=== PATIENT | male | born 2000 | race Caucasian/White ===

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

== ENCOUNTER 2021-01-24 14:13 | Emergency (ER) | payer OTHER, SELFPAY ==
[2021-01-24 14:27] VITALS: BP 124/67; PULSE 108; RESP 16; TEMP 38.1; O2SAT 100
--- NOTE | 2021-01-24 14:41 | ED.ABDPAIN ---
HPI - Abdominal Pain General Chief Complaint: Urogenital-Male Stated Complaint: headache,back pain,fever Time Seen by Provider: 01/24/21 14:30 Source: patient, family and RN notes reviewed Mode of arrival: ambulatory Limitations: no limitations History of Present Illness HPI narrative: Roberth is a 20-year-old male who [facility] complaining of lower back pain, fever, and headache. Mother states the fever was 100.6 at home. Patient denies any urinary symptoms. Patient states he has had a decreased appetite. Patient states she was fine yesterday all of the symptoms started around 2 AM. MD elicited complaint: abdominal pain Related Data Home Medications Medication Instructions Recorded Confirmed dexmethylphenidate 25 mg PO DAILY 02/14/19 09/25/20 melatonin 5 mg PO HS PRN 02/14/19 09/25/20 dexmethylphenidate 10 mg PO DAILY 09/25/20 09/25/20 lisinopril 5 mg PO DAILY 09/25/20 09/25/20 fluoxetine 10 mg DAILY 01/24/21 01/24/21 Allergies Allergy/AdvReac Type Severity Reaction Status Date / Time No Known Allergies Allergy Mild Verified 01/24/21 14:41 Review of Systems Review of Systems: CONSTITUTIONAL: Denies body aches, + fever,denies chills, or sweats. EYES: Denies visual changes, redness, or discharge. ENT: Denies rhinorrhea, congestion, sore throat, or otalgia. CARDIOVASCULAR: Denies chest pain, palpitations, or edema. RESPIRATORY: Denies cough or dyspnea. GASTROINTESTINAL: + abdominal pain,denies nausea, vomiting, or diarrhea. GENITOURINARY: Denies dysuria or hematuria. SKIN: Denies rash, itching, or wounds. MUSCULOSKELETAL: + back pain, denies joint pain, or myalgia. NEUROLOGIC: + headache,deneis numbness, tingling, or weakness. PSYCH: Denies depression or anxiety. All systems reviewed & are unremarkable except as noted in HPI and below PMFSH Social History Social History Gender identity (if verbalized by the patient): Male Comments At time of signature, I have reviewed and agree with nursing past medical, surgical, social and family history unless otherwise noted. Please see nursing chart for further information. There is no relevant family history pertinent to the presenting complaint Exam Narrative: GENERAL: Well-appearing, well-nourished, and in no acute distress. HEAD: Normocephalic, atraumatic. EYES: EOMI. No redness or drainage. Conjunctivae normal. ENT: Mucous membranes pink and moist. Nares clear. No rhinorrhea. TMs normal bilaterally. Throat normal. Uvula midline. NECK: Normal AROM. Supple. No lymphadenopathy. CHEST: No respiratory distress. Clear to auscultation. ABDOMEN: Soft, nontender, nondistended, normal active bowel sounds.negative for rebound tenderness,iliopsas and obturator test negative for RLQ pain , negative [place] MUSCULOSKELETAL: No bony tenderness. EXTREMITIES: Normal range of motion. No edema. Straight leg negative for sciatica. Denies any pain with palpation SKIN: Warm, dry, no rash. Capillary refill normal. Normal skin turgor. NEURO: No focal deficits. Alert and oriented x3. Gait steady. PSYCH: Normal affect. No signs of depression or anxiety. Course Vital Signs Vital signs: Vital Signs Temperature 38.1 C H 01/24/21 14:27 Pulse Rate 108 H 01/24/21 14:27 Respiratory Rate 16 01/24/21 14:27 Blood Pressure 124/67 01/24/21 14:27 Pulse Oximetry 100 01/24/21 14:27 Temperature 38.1 C H 01/24/21 14:27 Pulse Rate 108 H 01/24/21 14:27 Respiratory Rate 16 01/24/21 14:27 Blood Pressure 124/67 01/24/21 14:27 Pulse Oximetry 100 01/24/21 14:27 Reviewed MDM - Abdominal Pain MDM Narrative Medical decision making narrative: Patient's urinalysis is negative. Patient's rapid strep is negative. Patient's influenza a and B are negative. Patient's COVID-19 test is negative. Patient will be instructed that he should follow-up for a Covid PCR if he still symptomatic i
== END 2021-01-24 15:22 | disposition home or self-care (01) ==
PROVIDERS: Emergency Provider Nurse Practitioner Family; PCP Nurse Practitioner Family
DX: R50.9 Fever, unspecified (principal); Z20.822 Contact with and (suspected) exposure to COVID-19
CPT/HCPCS: 81003; 87081; 87426; 87804; 87880; 99213; C9803; G0463

== ENCOUNTER 2021-01-24 18:54 | Emergency (ER) | payer OTHER, SELFPAY ==
--- NOTE | ~2021-01-24 | XR_ITS ---
EXAMINATION: XR chest 1V EXAM DATE: 01/24/2021 20:23 INDICATION: Fever today. TECHNIQUE: Portable AP frontal chest x-ray was obtained. Comparison is made to prior examination from 04/01/2018. FINDINGS: The lungs are clear. There are no pleural effusions. Cardiac silhouette is prominent but magnified on this AP technique. There is no pneumothorax suspected. The bones and soft tissues are unremarkable. IMPRESSION: No acute cardiopulmonary findings. Reviewed, dictated and finalized at location A. NESS INFORMATION ANALYST
--- NOTE | ~2021-01-24 | CT_ITS ---
EXAMINATION: CT abdomen pelvis wo con EXAM DATE: 01/24/2021 20:20 INDICATION: Low back, flank pain. TECHNIQUE: Spiral CT of the abdomen and pelvis was performed without contrast. Axial, coronal and sag ittal images were reviewed. The dose-length product (DLP) for this examination was 328.72 mGy-cm. T he exposure was tailored according to patient size (auto mA exposure control), and iterative reconstr uction (ASIR) was used as additional dose reduction technique. There is no prior study for compariso n. FINDINGS: There is no nephrolithiasis or hydronephrosis. Subcentimeter left renal hemorrhagic cyst in the superior pole. The prostate is unremarkable. The bladder is unremarkable. The liver, spleen, a drenal glands and pancreas are unremarkable. Gallbladder is unremarkable. No biliary obstruction. There is no retroperitoneal or pelvic lymphadenopathy. The appendix is normal. The stomach and small bowel are unremarkable. There is expected amount of c olonic stool. No free intraperitoneal gas. The heart is normal in size. There are no pericardial or pleural effusions. The lung bases are unremarkable. There are no osteoblastic or osteolytic les ions identified. IMPRESSION: 1. No nephrolithiasis, hydronephrosis or acute intra-abdominal findings. Reviewed, dictated and finalized at location A. 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
[2021-01-24 19:04] VITALS: BP 131/70; PULSE 111; RESP 16; TEMP 36.8; O2SAT 98
[2021-01-24 19:46] VITALS: BP 131/70; PULSE 111; RESP 20; TEMP 36.4; O2SAT 99
--- NOTE | 2021-01-24 19:56 | ED.GENADULT ---
HPI - General Adult General Chief complaint: Headache Stated complaint: FEVER/BACK PAIN/GARRIDO Time Seen by Provider: 01/24/21 19:46 History of Present Illness HPI narrative: Patient is a 20-year-old gentleman with history of asthma and ADHD presents to emergency department with chief complaint fever and back pain. Patient reports that he started having pain in his low back reports that he has had has had body aches and has had a fever up to 103 at home. Patient was seen at urgent care had a rapid Covid rapid strep and a rapid flu these were negative like this already. Patient reports the pain is not improved by anything or is worsened by anything. Patient states that distress has had no nausea no vomiting no dysuria. Patient denies diarrhea. Related Data Home Medications Medication Instructions Recorded Confirmed dexmethylphenidate 25 mg PO DAILY 02/14/19 01/24/21 melatonin 5 mg PO HS PRN 02/14/19 01/24/21 dexmethylphenidate 10 mg PO DAILY 09/25/20 01/24/21 lisinopril 5 mg PO DAILY 09/25/20 01/24/21 fluoxetine 10 mg DAILY 01/24/21 01/24/21 Allergies Allergy/AdvReac Type Severity Reaction Status Date / Time No Known Allergies Allergy Mild Verified 01/24/21 14:41 Review of Systems Review of Systems: A 10 system review of systems was completed on the patient and is negative except for what is stated in the HPI. Nursing and ancillary documentation was reviewed. [facility] Social History Social History Gender identity (if verbalized by the patient): Male Exam Narrative: GENERAL: Well-appearing, well-nourished, and in no acute distress. HEAD: Normocephalic, atraumatic. EYES: PERRLA and EOMI. ENT: Nares clear, no rhinorrhea or epistaxis. Mucous membranes moist. NECK: Supple. CHEST: Clear to auscultation. No respiratory distress. HEART: Regular rate and rhythm. No murmur heard. Normal peripheral pulses. ABDOMEN: Soft, nontender, nondistended, normal active bowel sounds. EXTREMITIES: Normal range of motion. No edema. SKIN: Warm, dry, no rash. NEURO: No focal deficits. Alert and oriented x3. PSYCH: Normal mood and affect. Course Vital Signs Vital signs: Vital Signs Temperature 36.8 C 01/24/21 19:04 Pulse Rate 111 H 01/24/21 19:04 Respiratory Rate 16 01/24/21 19:04 Blood Pressure 131/70 01/24/21 19:04 Pulse Oximetry 98 01/24/21 19:04 Temperature 36.4 C 01/24/21 19:46 Pulse Rate 111 H 01/24/21 19:46 Respiratory Rate 20 01/24/21 19:46 Blood Pressure 131/70 01/24/21 19:46 Pulse Oximetry 99 01/24/21 19:46 Medical Decision Making Vital Signs Vital Signs: Vital Signs Temperature 36.8 C 01/24/21 19:04 Pulse Rate 111 H 01/24/21 19:04 Respiratory Rate 16 01/24/21 19:04 Blood Pressure 131/70 01/24/21 19:04 Pulse Oximetry 98 01/24/21 19:04 Temperature 36.4 C 01/24/21 19:46 Pulse Rate 111 H 01/24/21 19:46 Respiratory Rate 20 01/24/21 19:46 Blood Pressure 131/70 01/24/21 19:46 Pulse Oximetry 99 01/24/21 19:46 Lab Data Result diagrams: 01/24/21 20:46 01/24/21 20:46 Labs: Lab Results 01/24/21 01/24/21 01/24/21 Range/Units 20:46 20:46 20:46 WBC 5.4 (4.5-10.0) K/mm3 RBC 5.07 (4.6-6.20) M/mm3 Hgb 13.8 L (14.0-18.0) g/dL Hct 42.0 (42.0-52.0) % MCV 82.8 (80-100) fl MCH 27.2 (26-34) pg MCHC 32.9 (32-36) g/dl RDW 12.6 (11.5-14.5) % Plt Count 274 (150-375) k/mm3 MPV 9.0 (7.4-10.4) fl Immature Gran % (Auto) 0.2 (0-0.5) % Neut % (Auto) 75.7 H (45.5-73.1) % Lymph % (Auto) 12.5 L (18.3-44.2) % [place] % (Auto) 11.0 H (2.6-8.5) % Eos % (Auto) 0.2 (0-4.4) % Baso % (Auto) 0.4 (0.2-1.2) % Lymph # (Auto) 0.68 L (0.9-3.2) K/mm3 [place] # (Auto) 0.6 (0.1-0.6) K/mm3 Eos # (Auto) 0.0 (0-0.3) K/mm3 Baso # (Auto) 0.0 (0.0-0.1) K/mm3 Abs Immat Gran (auto) 0.01 (0.00-0
[2021-01-24] MEDS: SODIUM CHLORIDE 0.9% IV 1,000 ML 999 ML IV CONT (20:47)
[2021-01-24] MEDS: KETOROLAC 30 MG/ML VIAL (*BKC) IV PUSH (20:48)
[2021-01-24 20:52] LABS: Basophils Percent Auto 0.4 % (0.2-1.2); Eosinophils Percent Auto 0.2 % (0-4.4); Hemoglobin 13.8 g/dL (14.0-18.0); Immature Granulocyte Absolute 0.01 K/mm3 (0.00-0.031); Immature Granulocyte Percent A 0.2 % (0-0.5); Lymphocytes Absolute Auto 0.68 K/mm3 (0.9-3.2); Lymphocytes Percent Auto 12.5 % (18.3-44.2); Mean Corpuscular HGB Conc 32.9 g/dl (32-36); Mean Corpuscular Hemoglobin 27.2 pg (26-34); Mean Corpuscular Volume 82.8 fl (80-100); Monocytes Absolute Auto 0.6 K/mm3 (0.1-0.6); Neutrophils Absolute Auto 4.1 K/mm3 (1.3-6.7); Neutrophils Percent Auto 75.7 % (45.5-73.1); Platelet Count Result 274 k/mm3 (150-375); Red Blood Count 5.07 M/mm3 (4.6-6.20); Red Cell Distribution Width 12.6 % (11.5-14.5); White Blood Count 5.4 K/mm3 (4.5-10.0)
[2021-01-24 21:01] LABS: Lactic Acid Reflex 0.6 mmol/L (0.7-2.1)
[2021-01-24 21:02] LABS: Alanine Aminotransferase 29 U/L (4-50); Albumin Level 4.9 g/dL (3.7-5.6); Alkaline Phosphatase 83 U/L (58-237); Anion Gap 12 mmol/L (8-16); Aspartate Amino Transferase 24 U/L (17-59); Blood Urea Nitrogen 13 mg/dL (8-21); Calcium 9.5 mg/dL (8.9-10.7); Carbon Dioxide 25 mmol/L (22-30); Chloride 102 mmol/L (98-107); Estimated CRCL calculation 123 ml/min; Estimated Glomerular Filt Rate > 60; Glucose 100 mg/dL (65-110); Lipase 32 U/L (23-300); Potassium 3.9 mmol/L (3.4-5.0); Sodium 139 mmol/L (134-143)
[2021-01-24 22:05] LABS: Add Urine Microscopic? YES; Appearance Urine Clear (Clear); Bilirubin Urine Negative (Negative); Blood Urine Negative (Negative); Color Urine Yellow (Yellow); Glucose Urine UA Negative (Negative); Ketones Urine Trace mg/dL (Negative); Leukocyte Esterase Ur Negative LEU/UL (Negative); Mucus Urine Heavy /lpf; Nitrate Urine Negative (Negative); Protein Urine 1+ mg/dL (Negative); Squamous Epithelial Cell Urine Rare /hpf (Few); WBC Urine 0-3 /hpf
[2021-01-24 22:07] LABS: Specific Grav Ur 1.034 (1.001-1.035)
[2021-01-25 14:20] LABS: SARS-CoV-2 RNA PCR Positive
== END 2021-01-24 22:35 | disposition home or self-care (01) ==
PROVIDERS: Emergency Provider Emergency Medicine; PCP Nurse Practitioner Family
DX: U07.1 COVID-19 (principal); J45.909 Unspecified asthma, uncomplicated; F90.9 Attention-deficit hyperactivity disorder, unspecified type
CPT/HCPCS: 36415; 71045; 74176; 80053; 81001; 81003; 83605; 83690; 85025; 87081; 87426; 87804; 87880; 96361; 96374; 99213; 99284; C9803; G0463; J1885; J7030; U0003; U0005

== ENCOUNTER 2021-03-10 17:20 | Emergency (ER) | payer OTHER, SELFPAY ==
[2021-03-10 17:29] VITALS: BP 134/61; PULSE 86; RESP 18; TEMP 36.4; O2SAT 98
--- NOTE | 2021-03-10 17:31 | ED.EAR ---
HPI - Ear Problem General Chief complaint: Ear Stated complaint: foreign object lodged in rt ear Time Seen by Provider: 03/10/21 17:31 Source: patient, RN notes reviewed and old records reviewed Mode of arrival: ambulatory Limitations: no limitations History of Present Illness HPI Narrative: 20-year-old male who presents to [facility] with complaints of having foreign body in right ear which happened about 15 minutes ago. States it is off of his earbuds and has lodged into hs right ear. Patient denies any pain to his right ear but reports that he is unable to hear from his right ear. Patient reports that this has happened once before but he is unsure why it happened. MD Complaint: foreign body Location: right ear Related Data Home Medications Medication Instructions Recorded Confirmed dexmethylphenidate 25 mg PO DAILY 02/14/19 03/10/21 melatonin 5 mg PO HS PRN 02/14/19 03/10/21 lisinopril 5 mg PO DAILY 09/25/20 03/10/21 fluoxetine 10 mg DAILY 01/24/21 03/10/21 Allergies Allergy/AdvReac Type Severity Reaction Status Date / Time No Known Allergies Allergy Mild Verified 03/10/21 17:26 Review of Systems Review of Systems: CONSTITUTIONAL: Denies fever, chills, or sweats. EYES: Denies visual changes, redness, or discharge. ENT: Denies rhinorrhea, congestion, sore throat, or otalgia. Decreased hearing with foreign body in right ear CARDIOVASCULAR: Denies chest pain, palpitations, or edema. RESPIRATORY: Denies cough or dyspnea. GASTROINTESTINAL: Denies abdominal pain, nausea, vomiting, or diarrhea. GENITOURINARY: Denies dysuria or hematuria. SKIN: Denies rash or itching. MUSCULOSKELETAL: Denies back pain, joint pain, or myalgia. NEUROLOGIC: Denies headache, numbness, or weakness. PSYCHIATRIC: positive history of anxiety or depression. All systems reviewed & are unremarkable except as noted in HPI and below PMFSH Past Medical History Medical History (Updated 03/10/21 @ 19:59 by Nat Estrada NP) ADHD (attention deficit hyperactivity disorder) Anxiety and depression Aspergers' syndrome Ear infection Hypertension Surgical History Surgical History (Updated 03/10/21 @ 19:56 by Nat Estrada NP) History of placement of ear tubes Hx of eye surgery for cross eyes Family History Family History (Updated 03/10/21 @ 19:57 by Nat Estrada NP) Grandparent Diabetes mellitus Hypertension Heart disease Social History Social History (Updated 03/10/21 @ 19:57 by Nat Estrada NP) Social History: exposure to second hand tobacco Smoking status: Never smoker Alcohol intake: never Substance use: never Living arrangements: with family Gender identity (if verbalized by the patient): Male Comments At time of signature, agree with nursing past medical, surgical, social and family history. There is no relevant family history pertinent to the presenting complaint Exam Narrative: GENERAL: Well-appearing, well-nourished, and in no acute distress. HEAD: Normocephalic, atraumatic. EYES: PERRLA and EOMI. ENT: Nares clear, no rhinorrhea or epistaxis. Mucous membranes moist.Foreign body removed from right ear, TM's normal with good light reflex, throat pink with no lesions or exudates NECK: Supple.no lymphadenopathy CHEST: Clear to auscultation. No respiratory distress.SAO2 98% on room air HEART: Regular rate and rhythm. No murmur heard. Normal peripheral pulses. ABDOMEN: Soft, nontender, nondistended, normal active bowel sounds. EXTREMITIES: Normal range of motion. No edema. SKIN: Warm, dry, no rash. NEURO: No focal deficits. Alert and oriented x3. Course Course Level of Care: Express Care Visit Vital Signs Vital signs: Vital Signs Temperature 36.4 C 03/10/21 17:29 Pulse Rate 86 03/10/21 17:29 Respiratory Rate 18 03/10/21 17:29 Blood Pressure 134/61 03/10/21 17:29 Pulse Oximetry 98 03/10/21 17:29 Temperature 36.4 C 03/10/21 17:29 Pulse Rate 86 03/10/21 17
== END 2021-03-10 17:52 | disposition home or self-care (01) ==
PROVIDERS: Emergency Provider Registered Nurse
DX: T16.1XXA Foreign body in right ear, initial encounter (principal); X58.XXXA Exposure to other specified factors, initial encounter; F90.9 Attention-deficit hyperactivity disorder, unspecified type; F41.9 Anxiety disorder, unspecified; F32.A Depression, unspecified; F84.5 Asperger's syndrome; I10 Essential (primary) hypertension
CPT/HCPCS: 69200; 99212; G0463

== ENCOUNTER 2021-10-19 13:01 | Emergency (ER) | payer OTHER, SELFPAY ==
[2021-10-19 13:08] VITALS: BP 115/62; PULSE 90; RESP 16; TEMP 36.9; O2SAT 99
--- NOTE | 2021-10-19 13:15 | ED.URI ---
HPI - URI/Sore Throat General Chief Complaint: Headache Stated Complaint: Headache,Upset Stomach,Body Aches Time Seen by Provider: 10/19/21 13:16 Source: patient, family (mom), RN notes reviewed and old records reviewed Mode of arrival: ambulatory Limitations: no limitations History of Present Illness HPI Narrative: 21-year-old male presents to the [facility] with complaints of a headache, upset stomach and generalized body. Patient reports its been going on a couple of days. Mom reports that he had a temperature of 101 yesterday. No treatment prior to arrival. MD elicited complaint: fever Related Data Home Medications Medication Instructions Recorded Confirmed dexmethylphenidate 25 mg 25 mg PO DAILY 02/14/19 10/19/21 capsule,extended release [id number] melatonin 5 mg tablet 5 mg PO HS PRN Insomnia 02/14/19 10/19/21 lisinopril 5 mg tablet 5 mg PO DAILY 09/25/20 10/19/21 fluoxetine 10 mg capsule 10 mg DAILY 01/24/21 10/19/21 Allergies Allergy/AdvReac Type Severity Reaction Status Date / Time No Known Allergies Allergy Mild Verified 10/19/21 13:32 Review of Systems Review of Systems: All systems reviewed & are unremarkable except as noted in HPI and below Constitutional: Constitutional: Reports as per HPI, Reports body ache(s), Reports chills, Reports fatigue and Reports fever(s) Eyes: Eyes: Reports no additional eye complaints ENT: Reports system reviewed and no additional complaints, except as documented Cardiovascular: Cardiovascular: Reports no additional cardiovascular complaints Respiratory: Respiratory: Reports no additional respiratory complaints Gastrointestinal: Gastrointestinal: Reports no additional gastrointestinal complaints Musculoskeletal: Musculoskeletal: Reports no additional musculoskeletal complaints Integumentary/Breasts: Skin/Breast: Reports system reviewed and no additional complaints, except as docu Neurologic: Reports as per HPI and Reports headache(s) Psychiatric: Psychiatric: Reports no additional psychiatric complaints Allergic/Immunologic: Allergic/Immunologic: Reports no additional allergic/immunologic complaints PMFSH Past Medical History Medical History (Updated 10/19/21 @ 13:48 by Adrianne Quevedo APRN) ADHD (attention deficit hyperactivity disorder) Anxiety and depression Aspergers' syndrome Ear infection Hypertension Surgical History Surgical History History of placement of ear tubes Hx of eye surgery for cross eyes Family History Family History Grandparent Diabetes mellitus Hypertension Heart disease Social History Social History Social History: exposure to second hand tobacco Smoking status: Never smoker Alcohol intake: never Substance use: never Gender identity (if verbalized by the patient): Male Comments At the time of my signature, I reviewed and agree with the nursing past medical, surgical, social, and family history. There is no relevant family history pertinent to the patient complaint. Exam Const: General: healthy appearing, no acute distress and alert Nutritional Appearance: well nourished and obese Orientation/consciousness: patient oriented x3 Limitations: no limitations HENMT: Head: normal to inspection Ears: external ears normal, EAC's normal and TM abnormal with fluid behind the TM; not erythematous General nose exam: Normal external nose present, Normal nares present and Normal nasal mucous membranes and turbinates present Face and sinus: normal facial exam Mouth: Yes Normal oral and palatal mucosa present, Yes lip normal and Yes tongue normal Throat: tonsils normal, uvula midline, posterior oropharynx abnormal cobblestoning; no edema, no erythema and no exudates, postnasal drainage and no uvular edema Eyes: General: appearance normal, both
== END 2021-10-19 13:55 | disposition home or self-care (01) ==
PROVIDERS: Emergency Provider Nurse Practitioner; PCP Nurse Practitioner Family
DX: U07.1 COVID-19 (principal); F84.5 Asperger's syndrome; I10 Essential (primary) hypertension; F90.9 Attention-deficit hyperactivity disorder, unspecified type; F41.9 Anxiety disorder, unspecified; F32.A Depression, unspecified
CPT/HCPCS: 87426; 99213; A9270; C9803; G0463

== ENCOUNTER 2023-03-21 15:32 | Emergency (ER) | payer OTHER, SELFPAY ==
[2023-03-21 15:49] VITALS: BP 137/69; PULSE 84; RESP 20; TEMP 36.4; O2SAT 99
--- NOTE | 2023-03-21 16:38 | ED.GENADULT ---
HPI - General Adult General Chief complaint: Head Injury Stated complaint: head injury Time Seen by Provider: 03/21/23 16:29 Source: patient Mode of arrival: ambulatory Limitations: no limitations History of Present Illness HPI narrative: This is a 22-year-old male who presents to the ED with chief complaint of a head injury occurring at work today. Reports he bent over to get something off the ground and exudate up rather quickly. He states that the reason her workup open above him and he hit the back of his head on the door. It caused him to fall but he did not have any LOC. subsequent numbness, weakness or vomiting. Reports pain to the back of the head no other injury. Related Data Home Medications Medication Instructions Recorded Confirmed dexmethylphenidate 25 mg 25 mg PO DAILY 02/14/19 10/19/21 capsule,extended release [id number] melatonin 5 mg tablet 5 mg PO HS PRN Insomnia 02/14/19 10/19/21 lisinopril 5 mg tablet 5 mg PO DAILY 09/25/20 10/19/21 fluoxetine 10 mg capsule 10 mg DAILY 01/24/21 10/19/21 Allergies Allergy/AdvReac Type Severity Reaction Status Date / Time No Known Allergies Allergy Mild Verified 03/21/23 16:07 Review of Systems Review of Systems: All systems as dictated in [facility] Past Medical History Medical History (Updated 03/21/23 @ 16:39 by Sal Solano PA-C) ADHD (attention deficit hyperactivity disorder) Anxiety and depression Aspergers' syndrome Ear infection Hypertension Surgical History Surgical History History of placement of ear tubes Hx of eye surgery for cross eyes Family History Family History Grandparent Diabetes mellitus Hypertension Heart disease Social History Social History Social History: exposure to second hand tobacco Smoking status: Never smoker Alcohol intake: never Substance use: never Living arrangements: with family Gender identity (if verbalized by the patient): Male Exam Narrative: GENERAL: Well-appearing, well-nourished, and in no acute distress. HEAD: Normocephalic, atraumatic. EYES: PERRLA and EOMI. ENT: Nares clear, no rhinorrhea or epistaxis. Mucous membranes moist. Oropharynx without tonsillar hypertrophy exudate or other lesions. NECK: Supple. No adenopathy or masses. CHEST: No respiratory distress. Clear to auscultation. No wheezes rales or rhonchi HEART: Regular rate and rhythm. No murmur heard. Normal peripheral pulses. ABDOMEN: Soft, nontender, nondistended, normal active bowel sounds. MSK: Normal range of motion. No edema. SKIN: Warm, dry, no rash. NEURO: Alert and oriented x3. No focal deficits. PSYCH: Normal mood and affect. Course Vital Signs Vital signs: Vital Signs Temperature 97.6 F 03/21/23 15:49 Pulse Rate 84 03/21/23 15:49 Respiratory Rate 20 03/21/23 15:49 Blood Pressure 137/69 03/21/23 15:49 Pulse Oximetry 99 03/21/23 15:49 Oxygen Delivery Room Air 03/21/23 15:49 Temperature 97.6 F 03/21/23 15:49 Pulse Rate 84 03/21/23 15:49 Respiratory Rate 20 03/21/23 15:49 Blood Pressure 137/69 03/21/23 15:49 Pulse Oximetry 99 03/21/23 15:49 Oxygen Delivery Room Air 03/21/23 15:49 Medical Decision Making [facility] Narrative Medical decision making narrative: This is a 22-year-old male who presents to the ED with chief complaint of head injury that occurred today while at work. Vitals are normal. Exam is benign. Nexus criteria rules out C-spine or head CT. Symptoms consistent with minor concussion. Pt will be discharged in stable condition. Return precautions given and supportive measures discussed. Pt is understanding and agreeable with plan for discharge and follow-up with PCP. NEXUS Criteria for C-Spine Imaging from [email or web address] on 03/21/2023 All calculations should
== END 2023-03-21 16:54 | disposition home or self-care (01) ==
LOC: ANHED 16:50
PROVIDERS: Emergency Provider Physician Assistant; PCP Nurse Practitioner Family
DX: S09.90XA Unspecified injury of head, initial encounter (principal); F90.9 Attention-deficit hyperactivity disorder, unspecified type; F41.9 Anxiety disorder, unspecified; F32.A Depression, unspecified; I10 Essential (primary) hypertension; W22.09XA Striking against other stationary object, initial encounter
CPT/HCPCS: 99283